=== PATIENT | female | born 1950 | race Caucasian/White ===

== ENCOUNTER 2022-04-08 11:20 | Emergency (ER) | payer OTHER, BC ==
[2022-04-08 11:43] VITALS: BP 120/62; PULSE 94; TEMP 98.3; BMI 26.9
[2022-04-08] MEDS ORDERED: BEBTELOVIMAB (EUA) 175 MG/2 ML VIAL IVPUSH ONE (12:00)
== END 2022-04-08 20:43 | disposition home or self-care (01) ==
LOC: JCOVINFU 11:20
PROC: 3E033GC Introduction of Other Therapeutic Substance into Peripheral Vein, Percutaneous Approach (ICD-10-PCS; principal; 2022-04-08)
DX: U07.1 COVID-19 (principal)
CPT/HCPCS: 99284-25; M0222; Q0222